=== PATIENT | female | born 1955 | race Caucasian/White ===

== ENCOUNTER → 2017-05-06 | Outpatient (CLI) | payer BC ==
[~2017-05-06] MED LIST: AMLO-104 PO; CIT20 PO; CLON1PAT19 TD; KET10 PO; LEV100 PO; LIS20 PO; LOR5 PO; LOSA100T67 PO; OMEP-218 PO; PER PO
--- NOTE | 2017-05-06 09:18 | RADIOLOGY IMAGING REPORT ---
[facility] PATIENT NAME: Una Hines : 1955 MR: [id number] V: [id number] EXAM DATE: ORDERING PHYSICIAN: VITALIY HERMOSILLO TECHNOLOGIST: Location: [facility] Patient: Una Hines : 1955 Visit/Account:[id number] Date of Sevice: 05/06/2017 Exam type: CHEST PA AND LAT History: Short of breath, cough, chest pain when coughing Comparison: February 16, 2017. Findings: Small amount linear stranding in the left lung base which may represent atelectasis. There is no glen dence of lobar infiltrates pleural effusions or overt pulmonary edema. There is a small focal area o f increased density in the medial left lung base. Cardiac silhouette is normal in size. The trachea is midline. IMPRESSION: 1. Mild linear stranding in the left lung base may represent atelectasis. A small focal area of increased density in the medial left lung base could represent superimposed sha david versus a nodule. Short-term interval follow-up recommended Report Dictated By: Jeanette Burton MD at 05/06/2017 9:11 AM Report E-Signed By: Jeanette Burton MD at 05/06/2017 9:13 AM WSN:[email or web address]
== END ==
LOC: RAD 08:24
PROVIDERS: ATTEND Nurse Practitioner Family
DX: R91.8 Other nonspecific abnormal finding of lung field (principal)
CPT/HCPCS: 71046

== ENCOUNTER → 2017-06-06 | Outpatient (CLI) | payer BC ==
--- NOTE | 2017-06-06 12:23 | RADIOLOGY IMAGING REPORT ---
FACILITY: [facility] [place] PATIENT NAME: Una Hines : 1955 MR: [id number] V: [id number] EXAM DATE: ORDERING PHYSICIAN: VITALIY HERMOSILLO [place]CHN[place]IST: [place] [facility] [place] Una H[place] : 1955 Visit/Account:[id number] Date of Sevice: 06/06/2017 Exam type: CHEST PA AND LAT History: Left lung nodule follow up Comparison: May 06, 2017. Findings: Small amount linear stranding left lung base appears improved. There is no evidence of focal infiltr ates, pleural effusions or pulmonary edema. The previously noted focal area of increased density in the medial left lung base is no longer seen and likely represented a superimposed shadow.. The cardi ac silhouette is normal in size IMPRESSION: 1. No acute cardiopulmonary process is seen The focal area of increased density in the medial left lung base seen on the prior study is no longer identified and likely represented a superimposed shadow Report Dictated By: Jeanette Burton MD at 06/06/2017 12:17 PM Report E-Signed By: Jeanette Burton MD at 06/06/2017 12:20 PM WSN:[email or web address]
== END ==
LOC: RAD 11:42
PROVIDERS: ATTEND Nurse Practitioner Family
DX: R91.8 Other nonspecific abnormal finding of lung field (principal)
CPT/HCPCS: 71046